=== PATIENT | male | born 1945 | race Two or more races ===

== ENCOUNTER 2022-06-11 13:23 | Inpatient (IN) | payer MEDICARE, MEDICAID ==
[~2022-06-11] VITALS: Ht 167.6 cm; Wt 59.2 kg
[2022-06-11] VITALS: BP 111/63
[~2022-06-11 13:23] MED LIST: ACET250T3 PO; AMLO-489 PO; ARTISOL13 EACHEYE; ASPI81CH43; ATEN1TAB38; ATOR10TA; CARV3.1240 PO; CLON0.1T PO; DABI150C5; DOCU-94 PO; DOCU100C10 PO; DOXA4TAB2; ENAL20TA93; FAMO-12 PO; GABA300C; GUAI-16 PO; HYDR10TA26 PO; HYDR25TA4 PO; LEVO25TA6 PO; METO25TA5 PO; ONDA-144 PO; RIV20T PO; SERT50TA; SERT50TA19 PO; SIMV10TA84 PO; TRI05TP TOP; TRIA0.1P17 TOP
[2022-06-11] MEDS ORDERED: IPRATROPIUM BROM 0.5 MG/2.5ML INH SOL NEB ONE (14:15)
[2022-06-11] MEDS ORDERED: DexAMETHasone SOD PHOS 10MG/1ML VIAL INJ IV ONE (14:15)
[2022-06-11] MEDS ORDERED: ALBUTEROL SULF 2.5 MG/0.5ML(0.5%) NEB SOLN NEB ONE (14:15)
[2022-06-11] MEDS ORDERED: ALBUTEROL MEDNEB 2.5 mg/3ml NEB ONE ×3 (14:28→22:51)
[2022-06-11] MEDS: MAGNESIUM SULFATE 1GM/100ML 100 ML IV SCH ×2 (14:39→15:32)
[2022-06-11 14:58] LABS: Basophils # (auto) 0.1 10 ^3/uL (0-0.2); Basophils % (auto) 0.7 % (0.0-2.0); Eosinophils # (auto) 0.2 10 ^3/uL (0-0.8); Eosinophils % (auto) 2.4 % (0.0-7.0); Hematocrit 44.5 % (41.0-53.0); Lymphocytes # (auto) 1.1 10 ^3/uL (0.4-5.4); Mean Corpuscular Hemoglobin 32.9 pg (28.0-32.0); Mean Corpuscular Volume 91.3 fL (80.0-100.0); Monocytes # (auto) 0.8 10 ^3/uL (0-1.3); Monocytes % (auto) 10.4 % (0.0-12.0); Neutrophils # (auto) 5.3 10 ^3/uL (1.6-8.6); Neutrophils % (auto) 71.5 % (37.0-80.0); Nucleated Red Blood Cells % 0.3 %; Red Blood Cells 4.88 10^6/uL (4.5-5.90); Red Cell Distribution Width 13.8 % (11.8-14.3); White Blood Cell 7.4 10^3/uL (4.4-10.8)
[2022-06-11 15:22] LABS: Albumin 3.7 g/dL (3.4-5.0); BUN/Creatinine Ratio 13.8; Calcium 8.6 mg/dL (8.5-10.1); Magnesium 2.1 mg/dL (1.6-2.6); Potassium 4.4 mmol/L (3.5-5.1)
[2022-06-11 15:24] LABS: Bilirubin, Total 1.1 mg/dL (0.2-1.0); Total Protein 7.6 g/dL (6.4-8.2)
[2022-06-11] MEDS ORDERED: VANCOMYCIN 1GM/250ML 250 ML IV ONE (17:00)
[2022-06-11] MEDS ORDERED: CEFEPIME 1GM/ 50ML 50 ML IV ONE (17:00)
[2022-06-11] MEDS ORDERED: DOCUSATE SOD 100 MG CAP PO PRN (17:45)
[2022-06-11] MEDS ORDERED: ONDANSETRON HCL 4 MG/2 ML VIAL IV PRN (17:45)
[2022-06-11] MEDS ORDERED: IPRATROPIUM BROM 0.5 MG/2.5ML INH SOL ONE (18:09)
[2022-06-11] MEDS: SODIUM CHLORIDE 0.9% 1,000 ML IV SCH (18:14)
[2022-06-11] MEDS: IPRATROPIUM BROM 0.5 MG/2.5ML INH SOL NEB SCH ×2 (18:23→22:57)
[2022-06-11] MEDS: ALBUTEROL SULF 2.5 MG/0.5ML(0.5%) NEB SOLN NEB SCH ×2 (18:23→22:57)
[2022-06-11 18:29] VITALS: BP 97/61
[2022-06-11] MEDS: methylPREDNISolone SOD SUCC 40 MG/ML VL IV SCH (21:42)
[2022-06-11] MEDS: CEFEPIME 1GM/ 50ML 50 ML IV SCH (21:43)
[2022-06-11 23:48] VITALS: BP_SYST 111; BP_SYST 125; BP_DIAS 63; BP_DIAS 65
[2022-06-12 05:00] VITALS: BP 125/65
[2022-06-12 05:53] LABS: Basophils # (auto) 0 10 ^3/uL (0-0.2); Basophils % (auto) 0.1 % (0.0-2.0); Eosinophils # (auto) 0 10 ^3/uL (0-0.8); Hematocrit 41.3 % (41.0-53.0); Hemoglobin 14.4 g/dL (13.5-17.5); Lymphocytes # (auto) 0.7 10 ^3/uL (0.4-5.4); Lymphocytes % (auto) 9.1 % (10.0-50.0); Mean Corpuscular Hgb Conc. 34.8 g/dL (32.0-36.0); Mean Corpuscular Volume 92.1 fL (80.0-100.0); Monocytes # (auto) 0.1 10 ^3/uL (0-1.3); Monocytes % (auto) 1.7 % (0.0-12.0); Neutrophils # (auto) 6.5 10 ^3/uL (1.6-8.6); Neutrophils % (auto) 89.1 % (37.0-80.0); Nucleated Red Blood Cells % 0.1 %; Red Blood Cells 4.48 10^6/uL (4.5-5.90); Red Cell Distribution Width 14.1 % (11.8-14.3); White Blood Cell 7.3 10^3/uL (4.4-10.8)
[2022-06-12] MEDS ORDERED: ALBUTEROL MEDNEB 2.5 mg/3ml NEB ONE ×5 (05:59→22:02)
[2022-06-12] MEDS: CEFEPIME 1GM/ 50ML 50 ML IV SCH ×3 (06:00→22:16)
[2022-06-12] MEDS: IPRATROPIUM BROM 0.5 MG/2.5ML INH SOL NEB SCH ×5 (06:03→22:09)
[2022-06-12] MEDS: ALBUTEROL SULF 2.5 MG/0.5ML(0.5%) NEB SOLN NEB SCH ×5 (06:04→22:09)
[2022-06-12 06:19] LABS: Calcium 8.4 mg/dL (8.5-10.1); Potassium 4.4 mmol/L (3.5-5.1)
[2022-06-12 08:00] VITALS: BP 99/63
[2022-06-12] MEDS: methylPREDNISolone SOD SUCC 40 MG/ML VL IV SCH ×2 (09:21→22:15)
[2022-06-12] MEDS: SODIUM CHLORIDE 0.9% 1,000 ML IV SCH (09:22)
[2022-06-12] MEDS ORDERED: AZITHROMYCIN 500MG/ 250ML 250 ML IV ONE (11:45)
[2022-06-12 12:00] VITALS: BP 126/63
[2022-06-12 16:00] VITALS: BP 124/64
[2022-06-12 20:00] VITALS: BP 99/63
[2022-06-12 22:00] VITALS: BP 131/77
[2022-06-13 05:00] VITALS: BP 128/61
[2022-06-13] MEDS ORDERED: ALBUTEROL MEDNEB 2.5 mg/3ml NEB ONE ×4 (05:52→18:18)
[2022-06-13] MEDS: ALBUTEROL SULF 2.5 MG/0.5ML(0.5%) NEB SOLN NEB SCH ×4 (05:55→18:00)
[2022-06-13] MEDS: IPRATROPIUM BROM 0.5 MG/2.5ML INH SOL NEB SCH ×4 (05:55→18:00)
[2022-06-13 08:00] VITALS: BP 160/93
[2022-06-13] MEDS ORDERED: VANCOMYCIN 1GM/250ML 250 ML IV ONE (08:30)
[2022-06-13] MEDS ORDERED: VANCOMYCIN PER PHARMACY 0 MG IV SCH (08:30)
[2022-06-13] MEDS ORDERED: ALBUTEROL MEDNEB 2.5 mg/3ml NEB NEB PRN (09:00)
[2022-06-13] MEDS ORDERED: IPRATROPIUM BROM 0.5 MG/2.5ML INH SOL NEB PRN (09:00)
[2022-06-13 09:18] VITALS: BP 160/93
[2022-06-13] MEDS ORDERED: ENOXAPARIN SOD 40 MG/0.4 ML SYRINGE SC SCH (10:00)
[2022-06-13] MEDS ORDERED: METOPROLOL SUCCINATE XL 50 MG TAB PO SCH (10:00)
[2022-06-13] MEDS: methylPREDNISolone SOD SUCC 40 MG/ML VL IV SCH ×2 (10:42→21:05)
[2022-06-13] MEDS: ASPirin 81 mg TAB PO SCH (10:42)
[2022-06-13] MEDS: VANCOMYCIN 1GM/250ML 250 ML IV SCH (10:42)
[2022-06-13] MEDS: PANTOPRAZOLE 40 MG TAB PO SCH (10:42)
[2022-06-13] MEDS: MUPIROCIN 2% OINT 15gm or 22gm FOR MRSA NARES EACHNOSTRI SCH ×2 (10:42→21:13)
[2022-06-13] MEDS: APIXABAN 5 MG TAB PO SCH ×2 (10:42→21:04)
[2022-06-13] MEDS: DOCUSATE SOD 100 MG CAP PO SCH ×2 (10:42→21:05)
[2022-06-13] MEDS: AZITHROMYCIN 500MG/ 250ML 250 ML IV SCH (12:18)
[2022-06-13 13:20] VITALS: BP 107/55
[2022-06-13] MEDS: guaiFENesin-DM 100/10mg/5ml SYR PO PRN (14:42)
[2022-06-13] MEDS: CEFEPIME 1GM/ 50ML 50 ML IV SCH ×2 (16:33→21:06)
[2022-06-13 16:59] VITALS: BP 150/64
[2022-06-13 22:00] VITALS: BP 138/71
[2022-06-14] MEDS: ALBUTEROL SULF 2.5 MG/0.5ML(0.5%) NEB SOLN NEB SCH ×3 (00:23→09:28)
[2022-06-14] MEDS: IPRATROPIUM BROM 0.5 MG/2.5ML INH SOL NEB SCH ×6 (00:41→18:55)
[2022-06-14] MEDS: VANCOMYCIN 1GM/250ML 250 ML IV SCH ×2 (03:58→21:45)
[2022-06-14 05:00] VITALS: BP 99/61
[2022-06-14] MEDS: LEVOTHYROXINE SODIUM 25 MCG TAB PO SCH (06:28)
[2022-06-14 08:25] LABS: Potassium 4.5 mmol/L (3.5-5.1)
[2022-06-14 08:33] LABS: BUN/Creatinine Ratio 47.1; Calcium 8.6 mg/dL (8.5-10.1)
[2022-06-14] MEDS: AZITHROMYCIN 500MG/ 250ML 250 ML IV SCH (08:43)
[2022-06-14] MEDS: guaiFENesin-DM 100/10mg/5ml SYR PO PRN ×3 (08:44→17:13)
[2022-06-14 09:00] VITALS: BP 140/74
[2022-06-14] MEDS ORDERED: LEVALBUTEROL HCL 1.25 MG/3 ML NEB ONE (10:37)
[2022-06-14] MEDS ORDERED: METOPROLOL TARTRATE 25 MG TAB PO ONE (11:00)
[2022-06-14] MEDS: ASPirin 81 mg TAB PO SCH (11:28)
[2022-06-14] MEDS: APIXABAN 5 MG TAB PO SCH ×2 (11:29→21:48)
[2022-06-14] MEDS: methylPREDNISolone SOD SUCC 40 MG/ML VL IV SCH ×2 (11:29→21:47)
[2022-06-14] MEDS: DOCUSATE SOD 100 MG CAP PO SCH ×2 (11:29→21:47)
[2022-06-14] MEDS: MUPIROCIN 2% OINT 15gm or 22gm FOR MRSA NARES EACHNOSTRI SCH ×2 (11:29→21:43)
[2022-06-14] MEDS: PANTOPRAZOLE 40 MG TAB PO SCH (11:29)
[2022-06-14] MEDS: LEVALBUTEROL HCL 1.25 MG/3 ML NEB NEB SCH ×3 (12:00→18:55)
[2022-06-14 13:00] VITALS: BP_SYST 102; BP_SYST 141; BP_DIAS 60; BP_DIAS 85
[2022-06-14] MEDS: CEFEPIME 1GM/ 50ML 50 ML IV SCH ×2 (13:40→21:45)
[2022-06-14 17:00] VITALS: BP_SYST 124; BP_SYST 135; BP_DIAS 65; BP_DIAS 81
[2022-06-14] MEDS ORDERED: CEFEPIME 1GM/ 50ML 50 ML IV SCH (18:00)
[2022-06-14 20:00] VITALS: BP 140/74
[2022-06-14] MEDS: METOPROLOL TARTRATE 25 MG TAB PO SCH (21:49)
[2022-06-14 22:00] VITALS: BP 119/81
[2022-06-15] VITALS (8 sets, daily range): BP systolic 118–127; BP diastolic 70–81
[2022-06-15] MEDS: LEVALBUTEROL HCL 1.25 MG/3 ML NEB NEB SCH ×5 (00:34→19:10)
[2022-06-15] MEDS: CEFEPIME 1GM/ 50ML 50 ML IV SCH ×3 (05:22→21:42)
[2022-06-15] MEDS: LEVOTHYROXINE SODIUM 25 MCG TAB PO SCH (06:27)
[2022-06-15] MEDS: IPRATROPIUM BROM 0.5 MG/2.5ML INH SOL NEB SCH ×3 (06:51→19:10)
[2022-06-15] MEDS: ASPirin 81 mg TAB PO SCH (09:44)
[2022-06-15] MEDS: AZITHROMYCIN 500MG/ 250ML 250 ML IV SCH (09:44)
[2022-06-15] MEDS: methylPREDNISolone SOD SUCC 40 MG/ML VL IV SCH ×2 (09:44→21:40)
[2022-06-15] MEDS: METOPROLOL TARTRATE 25 MG TAB PO SCH (09:45)
[2022-06-15] MEDS: MUPIROCIN 2% OINT 15gm or 22gm FOR MRSA NARES EACHNOSTRI SCH ×3 (09:46→21:40)
[2022-06-15] MEDS: PANTOPRAZOLE 40 MG TAB PO SCH (09:46)
[2022-06-15] MEDS: DOCUSATE SOD 100 MG CAP PO SCH ×2 (09:46→21:40)
[2022-06-15] MEDS: APIXABAN 5 MG TAB PO SCH ×2 (09:46→21:41)
[2022-06-15] MEDS ORDERED: FUROSEMIDE 20 MG/2 ML VIAL IV ONE (11:15)
[2022-06-15] MEDS: HYDROcodone-ACET 5/325MG TAB PO PRN (21:20)
[2022-06-15] MEDS: CARVEDILOL 3.125 MG TAB PO SCH (21:42)
[2022-06-16] MEDS: LEVALBUTEROL HCL 1.25 MG/3 ML NEB NEB SCH ×5 (00:01→19:09)
[2022-06-16] MEDS: guaiFENesin-DM 100/10mg/5ml SYR PO PRN (02:35)
[2022-06-16 05:00] VITALS: BP 115/69
[2022-06-16] MEDS: CEFEPIME 1GM/ 50ML 50 ML IV SCH ×3 (05:41→22:25)
[2022-06-16] MEDS: IPRATROPIUM BROM 0.5 MG/2.5ML INH SOL NEB SCH ×3 (06:13→16:51)
[2022-06-16 06:14] LABS: Basophils # (auto) 0 10 ^3/uL (0-0.2); Basophils % (auto) 0.1 % (0.0-2.0); Eosinophils # (auto) 0 10 ^3/uL (0-0.8); Hematocrit 40.4 % (41.0-53.0); Hemoglobin 13.6 g/dL (13.5-17.5); Lymphocytes # (auto) 0.6 10 ^3/uL (0.4-5.4); Lymphocytes % (auto) 6.1 % (10.0-50.0); Mean Corpuscular Hemoglobin 31.4 pg (28.0-32.0); Mean Corpuscular Hgb Conc. 33.6 g/dL (32.0-36.0); Mean Corpuscular Volume 93.5 fL (80.0-100.0); Monocytes # (auto) 0.4 10 ^3/uL (0-1.3); Monocytes % (auto) 4.5 % (0.0-12.0); Neutrophils # (auto) 8.7 10 ^3/uL (1.6-8.6); Neutrophils % (auto) 89.3 % (37.0-80.0); Red Blood Cells 4.32 10^6/uL (4.5-5.90); Red Cell Distribution Width 14.5 % (11.8-14.3); White Blood Cell 9.8 10^3/uL (4.4-10.8)
[2022-06-16 06:28] LABS: BUN/Creatinine Ratio 43.8; Calcium 8.5 mg/dL (8.5-10.1)
[2022-06-16] MEDS: LEVOTHYROXINE SODIUM 25 MCG TAB PO SCH (06:28)
[2022-06-16 06:31] LABS: Potassium 5.1 mmol/L (3.5-5.1)
[2022-06-16 08:00] VITALS: BP 140/79
[2022-06-16] MEDS: MUPIROCIN 2% OINT 15gm or 22gm FOR MRSA NARES EACHNOSTRI SCH ×4 (10:00→22:24)
[2022-06-16] MEDS: AZITHROMYCIN 500MG/ 250ML 250 ML IV SCH (10:05)
[2022-06-16] MEDS: methylPREDNISolone SOD SUCC 40 MG/ML VL IV SCH ×2 (10:05→22:26)
[2022-06-16] MEDS: ASPirin 81 mg TAB PO SCH (10:05)
[2022-06-16] MEDS: DOCUSATE SOD 100 MG CAP PO SCH ×2 (10:05→22:00)
[2022-06-16] MEDS: APIXABAN 5 MG TAB PO SCH ×2 (10:06→22:28)
[2022-06-16] MEDS: PANTOPRAZOLE 40 MG TAB PO SCH (10:06)
[2022-06-16] MEDS: CARVEDILOL 3.125 MG TAB PO SCH ×2 (10:07→22:28)
[2022-06-16 12:00] VITALS: BP 136/88
[2022-06-16 16:00] VITALS: BP 133/89
[2022-06-16 22:00] VITALS: BP 143/76
[2022-06-17 05:00] VITALS: BP 109/71
[2022-06-17] MEDS: CEFEPIME 1GM/ 50ML 50 ML IV SCH (05:46)
[2022-06-17] MEDS: LEVOTHYROXINE SODIUM 25 MCG TAB PO SCH (06:31)
[2022-06-17 06:34] LABS: Calcium 8.3 mg/dL (8.5-10.1); Potassium 4.9 mmol/L (3.5-5.1)
[2022-06-17 06:38] LABS: BUN/Creatinine Ratio 55.7
[2022-06-17] MEDS: IPRATROPIUM BROM 0.5 MG/2.5ML INH SOL NEB SCH ×3 (06:53→19:13)
[2022-06-17] MEDS: LEVALBUTEROL HCL 1.25 MG/3 ML NEB NEB SCH ×3 (06:53→19:14)
[2022-06-17 08:00] VITALS: BP 146/84
[2022-06-17] MEDS: ASPirin 81 mg TAB PO SCH (09:10)
[2022-06-17] MEDS: PANTOPRAZOLE 40 MG TAB PO SCH (09:10)
[2022-06-17] MEDS: AZITHROMYCIN 500MG/ 250ML 250 ML IV SCH (09:11)
[2022-06-17] MEDS: CARVEDILOL 3.125 MG TAB PO SCH ×2 (09:12→22:00)
[2022-06-17] MEDS: methylPREDNISolone SOD SUCC 40 MG/ML VL IV SCH (09:13)
[2022-06-17] MEDS: MUPIROCIN 2% OINT 15gm or 22gm FOR MRSA NARES EACHNOSTRI SCH ×4 (09:13→22:00)
[2022-06-17] MEDS: DOCUSATE SOD 100 MG CAP PO SCH ×2 (09:25→22:00)
[2022-06-17] MEDS: APIXABAN 5 MG TAB PO SCH ×2 (09:30→22:00)
[2022-06-17 12:00] VITALS: BP 130/80
[2022-06-17 16:00] VITALS: BP 125/84
[2022-06-17] MEDS: ACETAMINOPHEN 325 MG TAB PO PRN (17:17)
[2022-06-17 21:13] VITALS: BP 125/84
[2022-06-17 22:00] VITALS: BP 119/68
[2022-06-18] MEDS: LEVALBUTEROL HCL 1.25 MG/3 ML NEB NEB SCH ×4 (00:22→18:15)
[2022-06-18] MEDS: IPRATROPIUM BROM 0.5 MG/2.5ML INH SOL NEB SCH ×4 (00:23→18:15)
[2022-06-18 05:00] VITALS: BP 118/64
[2022-06-18] MEDS: LEVOTHYROXINE SODIUM 25 MCG TAB PO SCH (06:10)
[2022-06-18] MEDS: ASPirin 81 mg TAB PO SCH (09:30)
[2022-06-18 09:33] VITALS: BP 135/78
[2022-06-18] MEDS: CARVEDILOL 3.125 MG TAB PO SCH ×2 (09:33→21:56)
[2022-06-18] MEDS: levoFLOXacin 500 MG TAB PO SCH (09:33)
[2022-06-18] MEDS: PANTOPRAZOLE 40 MG TAB PO SCH (09:34)
[2022-06-18] MEDS: MUPIROCIN 2% OINT 15gm or 22gm FOR MRSA NARES EACHNOSTRI SCH ×2 (09:34→21:55)
[2022-06-18] MEDS: APIXABAN 5 MG TAB PO SCH ×2 (09:34→21:56)
[2022-06-18] MEDS: DOCUSATE SOD 100 MG CAP PO SCH ×2 (09:43→21:55)
[2022-06-18] MEDS ORDERED: predniSONE 20 MG TAB PO SCH (10:00)
[2022-06-18] MEDS ORDERED: LORazepam 0.5 MG TAB PO ONE (11:15)
[2022-06-18] MEDS: ACETAMINOPHEN 325 MG TAB PO PRN (11:45)
[2022-06-18 12:48] VITALS: BP 125/75
[2022-06-18 17:02] VITALS: BP 105/58
[2022-06-18 22:07] VITALS: BP 132/71
[2022-06-19] MEDS: LEVALBUTEROL HCL 1.25 MG/3 ML NEB NEB SCH ×5 (00:10→22:26)
[2022-06-19 05:07] VITALS: BP 134/82
[2022-06-19] MEDS: LEVOTHYROXINE SODIUM 25 MCG TAB PO SCH (06:37)
[2022-06-19] MEDS: IPRATROPIUM BROM 0.5 MG/2.5ML INH SOL NEB SCH ×4 (06:57→22:26)
[2022-06-19 08:48] VITALS: BP 125/88
[2022-06-19] MEDS: guaiFENesin-DM 100/10mg/5ml SYR PO PRN ×2 (10:17→15:00)
[2022-06-19] MEDS: ASPirin 81 mg TAB PO SCH (10:17)
[2022-06-19] MEDS: levoFLOXacin 500 MG TAB PO SCH (10:17)
[2022-06-19] MEDS: DOCUSATE SOD 100 MG CAP PO SCH ×2 (10:17→22:28)
[2022-06-19] MEDS: predniSONE 20 MG TAB PO SCH (10:18)
[2022-06-19] MEDS: APIXABAN 5 MG TAB PO SCH ×2 (10:18→22:28)
[2022-06-19] MEDS: PANTOPRAZOLE 40 MG TAB PO SCH (10:18)
[2022-06-19] MEDS: MUPIROCIN 2% OINT 15gm or 22gm FOR MRSA NARES EACHNOSTRI SCH ×2 (10:19→22:27)
[2022-06-19] MEDS: CARVEDILOL 3.125 MG TAB PO SCH ×2 (10:19→22:28)
[2022-06-19] MEDS ORDERED: IPRATROPIUM BROM 0.5 MG/2.5ML INH SOL NEB SCH (11:45)
[2022-06-19] MEDS ORDERED: LEVALBUTEROL HCL 1.25 MG/3 ML NEB NEB SCH ×2 (11:45→12:15)
[2022-06-19] MEDS ORDERED: ALPRAZolam 0.5 MG TAB PO PRN (11:45)
[2022-06-19] MEDS ORDERED: IPRATROPIUM BROM 0.5 MG/2.5ML INH SOL NEB ONE (12:11)
[2022-06-19] MEDS ORDERED: IPRATROPIUM BROM 0.5 MG/2.5ML INH SOL ONE (12:17)
[2022-06-19] MEDS ORDERED: LEVALBUTEROL HCL 1.25 MG/3 ML NEB ONE (12:17)
[2022-06-19] MEDS ORDERED: LEVALBUTEROL HCL 1.25 MG/3 ML NEB NEB ONE (12:30)
[2022-06-19 14:45] VITALS: BP 130/74
[2022-06-19] MEDS: MORPHINE SULFATE INJ 2 MG/ml SYRG IV PRN (15:02)
[2022-06-19 17:27] VITALS: BP 115/66
[2022-06-19] MEDS ORDERED: LEVALBUTEROL HCL 1.25 MG/3 ML NEB NEB PRN (18:00)
[2022-06-19] MEDS ORDERED: IPRATROPIUM BROM 0.5 MG/2.5ML INH SOL NEB PRN (18:00)
[2022-06-19] MEDS ORDERED: ALPRAZolam 0.25 MG TAB PO SCH (20:00)
[2022-06-19] MEDS ORDERED: ALPRAZolam 0.25 MG TAB PO PRN (20:00)
[2022-06-19 22:00] VITALS: BP 117/64
[2022-06-19] MEDS ORDERED: ALBUTEROL MEDNEB 2.5 mg/3ml NEB ONE (22:11)
[2022-06-20] MEDS: IPRATROPIUM BROM 0.5 MG/2.5ML INH SOL NEB SCH ×7 (02:36→22:21)
[2022-06-20] MEDS: LEVALBUTEROL HCL 1.25 MG/3 ML NEB NEB SCH ×7 (02:36→22:21)
[2022-06-20 05:00] VITALS: BP 110/55
[2022-06-20] MEDS: LEVOTHYROXINE SODIUM 25 MCG TAB PO SCH (06:28)
[2022-06-20] MEDS: MORPHINE SULFATE INJ 2 MG/ml SYRG IV PRN ×2 (08:01→13:44)
[2022-06-20] MEDS: ASPirin 81 mg TAB PO SCH (10:31)
[2022-06-20] MEDS: DOCUSATE SOD 100 MG CAP PO SCH ×2 (10:33→22:19)
[2022-06-20] MEDS: PANTOPRAZOLE 40 MG TAB PO SCH (10:33)
[2022-06-20] MEDS: CARVEDILOL 3.125 MG TAB PO SCH ×2 (10:34→22:00)
[2022-06-20] MEDS: APIXABAN 5 MG TAB PO SCH ×2 (10:35→22:20)
[2022-06-20] MEDS: levoFLOXacin 500 MG TAB PO SCH (10:35)
[2022-06-20] MEDS: predniSONE 20 MG TAB PO SCH (10:37)
[2022-06-20] MEDS: MUPIROCIN 2% OINT 15gm or 22gm FOR MRSA NARES EACHNOSTRI SCH (10:38)
[2022-06-20] MEDS: guaiFENesin-DM 100/10mg/5ml SYR PO PRN ×2 (10:40→15:17)
[2022-06-20 13:00] VITALS: BP 117/70
[2022-06-20] MEDS: HYDROcodone-ACET 5/325MG TAB PO PRN (15:20)
[2022-06-20] MEDS: ALPRAZolam 0.5 MG TAB PO PRN (16:32)
[2022-06-20 17:07] VITALS: BP 117/62
[2022-06-20 21:00] VITALS: BP 117/60
[2022-06-20 22:00] VITALS: BP 101/66
[2022-06-21] MEDS: guaiFENesin-DM 100/10mg/5ml SYR PO PRN ×2 (01:47→09:33)
[2022-06-21] MEDS: IPRATROPIUM BROM 0.5 MG/2.5ML INH SOL NEB SCH ×6 (01:53→22:09)
[2022-06-21] MEDS: LEVALBUTEROL HCL 1.25 MG/3 ML NEB NEB SCH ×6 (01:53→22:09)
[2022-06-21 05:00] VITALS: BP 144/88
[2022-06-21] MEDS: LEVOTHYROXINE SODIUM 25 MCG TAB PO SCH (06:46)
[2022-06-21 09:00] VITALS: BP 139/73
[2022-06-21] MEDS: APIXABAN 5 MG TAB PO SCH ×2 (09:34→21:00)
[2022-06-21] MEDS: ASPirin 81 mg TAB PO SCH (09:34)
[2022-06-21] MEDS: PANTOPRAZOLE 40 MG TAB PO SCH (09:34)
[2022-06-21] MEDS: DOCUSATE SOD 100 MG CAP PO SCH ×2 (09:34→21:00)
[2022-06-21] MEDS: predniSONE 20 MG TAB PO SCH (09:34)
[2022-06-21] MEDS: levoFLOXacin 500 MG TAB PO SCH (09:34)
[2022-06-21] MEDS: CARVEDILOL 3.125 MG TAB PO SCH ×2 (09:35→21:02)
[2022-06-21] MEDS ORDERED: DOXYCYCLINE 100 MG TAB/CAP PO ONE (10:30)
[2022-06-21] MEDS ORDERED: MUPIROCIN 2% OINT 15gm or 22gm TOP ONE (10:30)
[2022-06-21 13:00] VITALS: BP 131/73
[2022-06-21 17:23] VITALS: BP 140/89
[2022-06-21] MEDS: MUPIROCIN 2% OINT 15gm or 22gm FOR MRSA NARES EACHNOSTRI SCH (21:00)
[2022-06-21] MEDS: ALPRAZolam 0.5 MG TAB PO PRN (21:00)
[2022-06-21] MEDS: DOXYCYCLINE 100 MG TAB/CAP PO SCH (21:01)
[2022-06-21 22:00] VITALS: BP 109/62
[2022-06-22] MEDS: guaiFENesin-DM 100/10mg/5ml SYR PO PRN ×3 (00:29→14:30)
[2022-06-22] MEDS: IPRATROPIUM BROM 0.5 MG/2.5ML INH SOL NEB SCH ×4 (02:25→13:55)
[2022-06-22] MEDS: LEVALBUTEROL HCL 1.25 MG/3 ML NEB NEB SCH ×4 (02:25→13:55)
[2022-06-22 05:00] VITALS: BP 118/69
[2022-06-22] MEDS: LEVOTHYROXINE SODIUM 25 MCG TAB PO SCH (06:15)
[2022-06-22] MEDS: ASPirin 81 mg TAB PO SCH (08:45)
[2022-06-22] MEDS: DOCUSATE SOD 100 MG CAP PO SCH (08:45)
[2022-06-22] MEDS: APIXABAN 5 MG TAB PO SCH (08:45)
[2022-06-22] MEDS: DOXYCYCLINE 100 MG TAB/CAP PO SCH (08:45)
[2022-06-22] MEDS: CARVEDILOL 3.125 MG TAB PO SCH (08:46)
[2022-06-22] MEDS: PANTOPRAZOLE 40 MG TAB PO SCH (08:47)
[2022-06-22] MEDS: MORPHINE SULFATE INJ 2 MG/ml SYRG IV PRN (08:47)
[2022-06-22] MEDS: MUPIROCIN 2% OINT 15gm or 22gm FOR MRSA NARES EACHNOSTRI SCH (08:48)
[2022-06-22] MEDS ORDERED: predniSONE 20 MG TAB PO SCH (10:00)
[2022-06-22 12:37] VITALS: BP 98/54
[2022-06-22 12:55] VITALS: BP 98/54
[2022-06-22 13:49] VITALS: BP 98/54
== END 2022-06-22 16:50 | DRG 177 ==
LOC: EDBD 13:23 → ER 13:23 → TELE 17:41 → TELE-EAST 22:56
PROVIDERS: ADMIT Hospitalist; ATTEND Internal Medicine
DX: J15.6 Pneumonia due to other Gram-negative bacteria (principal); I50.33 Acute on chronic diastolic (congestive) heart failure; J96.00 Acute respiratory failure, unspecified whether with hypoxia or hypercapnia; J44.0 Chronic obstructive pulmonary disease with (acute) lower respiratory infection; I69.351 Hemiplegia and hemiparesis following cerebral infarction affecting right dominant side; J44.1 Chronic obstructive pulmonary disease with (acute) exacerbation; J98.11 Atelectasis; D68.69 Other thrombophilia; I11.0 Hypertensive heart disease with heart failure; I25.10 Atherosclerotic heart disease of native coronary artery without angina pectoris; I48.91 Unspecified atrial fibrillation; Z20.822 Contact with and (suspected) exposure to COVID-19; E03.9 Hypothyroidism, unspecified; E66.9 Obesity, unspecified; I69.320 Aphasia following cerebral infarction; Z75.1 Person awaiting admission to adequate facility elsewhere; Z79.899 Other long term (current) drug therapy; Z95.0 Presence of cardiac pacemaker; Z68.32 Body mass index [BMI] 32.0-32.9, adult
CPT/HCPCS: 36415; 36600; 71045; 71250; 76604; 80048; 80053; 82805; 83735; 83880; 84484; 85025; 87081; 87426; 93005; 93306; 93970; 94640; 96365; 96366; 96367; 96368; 96375; 97110; 97163; 97530; G0378; J1100